=== PATIENT | female | born 1945 | race Caucasian/White ===

== ENCOUNTER 2016-09-17 10:37 | Emergency (ER) | payer MEDICARE, OTHER ==
[~2016-09-17 10:37] MED LIST: ASAB PO; BIST PO; ERY-TAB500 MG PO; GLUCOTRO10 PO; JANUVIA100 MG PO; LOFIB160 PO; MICARDIS H80 MG/25 M PO; MICARDIS HCT PO; NEUR400 PO; NORCO1 TA1 PO; NORV5 PO; PRILOSEC40 MG PO; SYN1 PO; VERAMYST27.5 MCG NAS; VITD PO
== END 2016-09-17 12:11 | disposition home or self-care (01) ==
LOC: ER 10:37
DX: S29.9XXA Unspecified injury of thorax, initial encounter (principal); I10 Essential (primary) hypertension; Z88.0 Allergy status to penicillin; Z88.2 Allergy status to sulfonamides; Z79.82 Long term (current) use of aspirin; Z79.899 Other long term (current) drug therapy; W18.2XXA Fall in (into) shower or empty bathtub, initial encounter
CPT/HCPCS: 71101; 99283; A9270-GY